=== PATIENT | male | born 1940 | race Caucasian/White ===

== ENCOUNTER 2018-01-11 08:31 | Emergency (ER) | payer MEDICARE, OTHER ==
[2018-01-11 08:37] VITALS: TEMP 99
[2018-01-11 09:36] LABS: COLLECTION METHOD CLEAN CATCH
[2018-01-11] MEDS ORDERED: BENADRYL25 M2 PO (09:41)
[2018-01-11] MEDS ORDERED: NORCO 325 MG-51 TAB PO (09:41)
[2018-01-11 09:42] LABS: BASO # 0.1 (0.0-0.2); BASO % 0.6 % (0.0-2.0); EOS # 0.3 (0.0-0.7); EOS % 3.3 % (0-4.0); GRAN # 5.7 (1.4-6.5); GRAN % 72.2 % (42.2-75.2); HEMATOCRIT 42.5 % (42.0-52.0); HEMOGLOBIN 13.4 g/dl (13.5-18.0); LYMPH # 1.4 (1.2-3.4); LYMPH % 17.7 % (20.0-51.0); MEAN CELL VOLUME 94 fl (80.0-100.0); MEAN CORPUSCULAR HEMOGLOBIN 30 pg (27.0-31.0); MEAN CORPUSCULAR HGB CONC 32 g/dl (33.0-37.0); MEAN PLATELET VOLUME 8.9 fl (7.4-10.4); MONO # 0.5 (0.1-0.6); MONO % 5.9 % (1.7-9.3); PLATELET COUNT 203 K/mm3 (130-400); REDCELL DISTRIBUTION WIDTH-CV 13.2 % (11.5-14.5)
[2018-01-11] MEDS ORDERED: KLONOPIN WAFERS1 MG PO (09:42)
[2018-01-11] MEDS ORDERED: CYMBALTA 60MG60 MG PO (09:42)
[2018-01-11] MEDS ORDERED: PROSCAR 5MG5 MG PO (09:42)
[2018-01-11] MEDS ORDERED: FLONASEALLERGY NAS (09:43)
[2018-01-11] MEDS ORDERED: ROXICODONE 55 MG/TAB PO (09:44)
[2018-01-11] MEDS ORDERED: LAMICTAL150 MG PO (09:44)
[2018-01-11] MEDS ORDERED: MIRAPEX0.25 MG PO (09:45)
[2018-01-11 09:48] LABS: MUCOUS Present /lpf; PH 5 (5-8); SQUAMOUS EPITHELIAL None Seen /hpf; URINE APPEARANCE Clear; URINE BACTERIA None Seen /hpf; URINE BILIRUBIN Negative (NEGATIVE); URINE BLOOD Negative (NEGATIVE); URINE COLOR Yellow; URINE GLUCOSE Negative (NEGATIVE); URINE KETONE Negative (NEGATIVE); URINE LEUKOCYTE ESTERASE Negative (NEGATIVE); URINE NITRATE Negative (NEGATIVE); URINE PROTEIN(semi-quant) Negative (NEGATIVE); URINE RBC None Seen /hpf; URINE UROBILINOGEN Negative (NEGATIVE)
[2018-01-11 09:49] LABS: ALBUMIN 4.1 gm/dL (3.5-5.0); CALCIUM 9.1 mg/dL (8.4-10.2); CREATININE, serum 1.76 mg/dL (0.66-1.25); POTASSIUM 4.5 mmol/L (3.4-5.0)
[2018-01-11 17:00] VITALS: BP 168/94; PULSE 82
== END 2018-01-11 17:11 | disposition home or self-care (01) ==
LOC: COL.ER 08:31
PROVIDERS: Emergency Medicine
DX: R42 Dizziness and giddiness (principal); Z86.73 Personal history of transient ischemic attack (TIA), and cerebral infarction without residual deficits
CPT/HCPCS: J7030

== ENCOUNTER → 2018-02-02 | Outpatient (REF) ==
[~2018-02-02] MED LIST: BENADRYL25 M2 PO; CYMBALTA 60MG60 MG PO; FLONASEALLERGY NAS; KLONOPIN WAFERS1 MG PO; LAMICTAL150 MG PO; MIRAPEX0.25 MG PO; NORCO 325 MG-51 TAB PO; PROSCAR 5MG5 MG PO; ROXICODONE 55 MG/TAB PO
[2018-02-02 15:33] LABS: THYROID STIMULATING HORMONE 1.77 uIU/mL (0.465-4.680)
== END ==
LOC: ZLAB.WCH 14:38
PROVIDERS: Family Medicine
DX: Z01.89 Encounter for other specified special examinations (principal)

== ENCOUNTER → 2019-06-28 | Outpatient (REF) | LOC: COL.CARD 14:23 | DX: Z01.818 Encounter for other preprocedural examination (principal) ==

== ENCOUNTER → 2019-07-28 | Outpatient (CLI) | payer MEDICARE, OTHER | LOC: COL.RAD 14:04 | DX: K80.11 Calculus of gallbladder with chronic cholecystitis with obstruction (principal); K76.9 Liver disease, unspecified; Z98.890 Other specified postprocedural states ==

== ENCOUNTER 2019-10-07 05:55 | Day surgery (SDC) | payer MEDICARE, OTHER ==
[2019-10-07] VITALS (12 sets, daily range): BP systolic 100–145; BP diastolic 59–82; PULSE 65–85; TEMP 97.1–98.2
[~2019-10-07] VITALS: Ht 177.8 cm; Wt 107.5 kg
[2019-10-07] MEDS ORDERED: CALCITRIOL PO (06:23)
[2019-10-07] MEDS ORDERED: KLONOPIN 0.5MG0.5 MG PO (07:12)
[2019-10-07] MEDS ORDERED: TESSALON P100 MG/CAP PO (07:12)
[2019-10-07] MEDS ORDERED: NORVASC 10MG10 MG PO (07:13)
[2019-10-07] MEDS ORDERED: PROZAC 20MG20 MG PO (07:14)
[2019-10-07] MEDS ORDERED: PROTONIX20 MG PO (07:14)
[2019-10-07] MEDS ORDERED: TYLENOL/CODEINE1 ML PO (07:15)
[2019-10-07] MEDS ORDERED: ULTRAM 50MG TAB50 MG PO (09:55)
--- NOTE | 2019-10-07 20:45 | NUR ---
patient doing well tonight. alert and oriented x4. abd laps x4 CDI with bandaids. c/o pain only to L eye and prn tetracaine eyedrops at bedside. patient denies any other pain at this time. resting comfortably in bed currently. no further needs at this time. will continue to monitor.
[2019-10-08 04:18] VITALS: BP 115/60; PULSE 73; TEMP 98.4
[2019-10-08 07:48] VITALS: BP 125/69; PULSE 83; TEMP 97.5
--- NOTE | 2019-10-08 10:00 | NUR ---
Denied pain. Bandaids to abdomen CDI. Ambulatory in room by self. Took breakfast well. Dr. Martinez saw patient. Dismissed to home per w/c with spouse.
== END 2019-10-08 10:00 | disposition home or self-care (01) ==
LOC: SDCO 05:55 → SURG 10:50 → SDCO 10-08 10:00
DX: K80.10 Calculus of gallbladder with chronic cholecystitis without obstruction (principal); I10 Essential (primary) hypertension; F32.9 Major depressive disorder, single episode, unspecified; I48.91 Unspecified atrial fibrillation; G47.33 Obstructive sleep apnea (adult) (pediatric); Z85.528 Personal history of other malignant neoplasm of kidney; Z90.5 Acquired absence of kidney; Z88.2 Allergy status to sulfonamides
CPT/HCPCS: OP; J0690; J1100; J2405; J2704; J7120